=== PATIENT | female | born 1945 | race Caucasian/White ===

== ENCOUNTER 2016-03-19 10:17 | Outpatient (CLI) | payer MEDICARE, OTHER | END 2016-03-19 10:18 | disposition home or self-care (01) | DX: Z12.2 Encounter for screening for malignant neoplasm of respiratory organs (principal); J43.2 Centrilobular emphysema; F17.210 Nicotine dependence, cigarettes, uncomplicated ==

== ENCOUNTER 2016-05-13 15:30 | Outpatient (CLI) | payer MEDICARE, OTHER | END 2016-05-13 15:31 | disposition home or self-care (01) | DX: M79.602 Pain in left arm (principal) ==

== ENCOUNTER 2017-05-19 07:34 | Outpatient (CLI) | payer MEDICARE, OTHER ==
[2017-05-19 10:46] LABS: ALBUMIN 4.1 g/dL (3.2-5.5); BILIRUBIN,DIRECT 0.1 mg/dL (0.1-0.5); BILIRUBIN,TOTAL 0.4 mg/dL (0.2-1.0); TOTAL PROTEIN 7.2 g/dL (6.7-8.2)
== END 2017-05-19 07:35 | disposition home or self-care (01) ==
LOC: LAB.F 07:34
PROVIDERS: ATTEND Physician Assistant
DX: B35.4 Tinea corporis (principal)
CPT/HCPCS: 36415; 80076

== ENCOUNTER 2017-09-02 10:10 | Outpatient (CLI) | payer MEDICARE, OTHER ==
--- NOTE | 2017-09-03 14:02 | Mammography Report ---
Procedure Date: 09/02/2017 Accession Number: [id number] / [id number] Procedure: RODOLFO - Screening Mammo Dig Bilat CPT Code: FULL RESULT: EXAM: Screening Mammo Dig Bilat DATE: 09/02/2017 10:47 AM CLINICAL HISTORY: Routine screening TECHNIQUE: Bilateral CC and MLO views were obtained. COMPARISON: 08/21/2015, 04/07/2014, 07/25/2011, 03/29/2010, and 05/31/2008 FINDINGS: There are scattered fibroglandular densities. There has been no significant interval change. No suspicious masses, skin thickening, clustered microcalcifications, or regions of architectural distortion are identified. IMPRESSION: Negative. RECOMMENDATION: Routine annual screening unless otherwise clinically indicated. BIRADS CATEGORY 1: Negative STANDARD QUALIFYING STATEMENTS: 1. This examination was reviewed with the aid of Computer-Aided Detection (CAD). 2. A negative or benign imaging report should not delay biopsy if clinically suspicious findings are present. Consider surgical consultation if warrented. More than 5% of cancers are not identified by imaging. 3. Dense breasts may obscure an underlying neoplasm.
== END 2017-09-02 10:11 | disposition home or self-care (01) ==
LOC: DI 10:10
PROVIDERS: ATTEND Physician Assistant
DX: Z12.31 Encounter for screening mammogram for malignant neoplasm of breast (principal)
CPT/HCPCS: 77067

== ENCOUNTER 2019-09-08 10:51 | Outpatient (CLI) | payer MEDICARE, OTHER ==
--- NOTE | 2019-09-08 16:46 | DEXA Report ---
Reason: OSTEOPORSIS Procedure Date: 09/08/2019 Accession Number: [id number] / [id number] Procedure: DEX - Dexa Spine and/or Hip CPT Code: Final Report FULL RESULT: PROCEDURE: Dexa Spine and/or Hip INDICATIONS: OSTEOPORSIS TECHNIQUE: Dual energy x-ray absorptiometry (DXA) was performed on a [employer] System. Regions measured are the AP Spine, femoral neck, and if needed forearm. COMPARISON: None. FINDINGS: Lumbar Spine: Bone Mineral Density 0.854 g/cm/cm,T score -2.7 Left Hip: Bone Mineral Density 0.922 g/cm/cm,T score -0.7 Left Femoral Neck: Bone Mineral Density 0.877 g/cm/cm, T score -1.2 (T score greater or equal to -1.0: NORMAL) (T score from -1.1 to -2.4: OSTEOPENIA) (T score less than or equal to -2.5 to: OSTEOPOROSIS) Impression: 1. Osteoporosis of the lumbar spine. 2. Osteopenia of the femoral neck. Patients with diagnosis of osteoporosis or osteopenia should have regular bone mineral density assessment. For those eligible for Medicare, routine testing is allowed once every 2 years. Testing frequency can be increased for patients who have rapidly progressing disease or for those who are receiving medical therapy to restore bone mass. Reviewed by: Megan Molina MD on 09/08/2019 4:45 PM PDT Approved by: Megan Molina MD on 09/08/2019 4:45 PM PDT Station ID: [id number]
== END 2019-09-08 10:52 | disposition home or self-care (01) ==
LOC: DI 10:51
PROVIDERS: ATTEND Registered Nurse
DX: M81.0 Age-related osteoporosis without current pathological fracture (principal); M85.88 Other specified disorders of bone density and structure, other site
CPT/HCPCS: 77080

== ENCOUNTER 2020-10-19 09:34 | Outpatient (CLI) | payer MEDICARE, OTHER ==
[2020-10-19 14:52] LABS: ALBUMIN 4.2 g/dL (3.2-5.5); ALBUMIN/GLOBULIN RATIO 1.4 (1.0-2.2); ALKALINE PHOSPHATASE 63 IU/L (42-121); ALT ALANINE AMINOTRANSFERASE 23 IU/L (10-60); AST ASPARTATE AMINOTRANSFERASE 24 IU/L (10-42); BILIRUBIN,TOTAL 0.6 mg/dL (0.2-1.0); BUN - BLOOD UREA NITROGEN 19 mg/dL (6-20); CALCIUM 9.5 mg/dL (8.5-10.3); CARBON DIOXIDE - CO2 23 mmol/L (21-32); CHLORIDE 105 mmol/L (101-111); CHOL/HDL RATIO 3.3 (<4.4); CHOLESTEROL 179 mg/dL; CREATININE 0.7 mg/dL (0.4-1.0); GFR - MDRD 81 (>89); GLUCOSE 114 mg/dL (70-100); HDL CHOLESTEROL 54 mg/dL; LDL CHOLESTEROL,CALCULATED 98 mg/dL; LDL/HDL RATIO 1.8 (<4.4); MAGNESIUM 1.8 mg/dL (1.7-2.8); POTASSIUM 4.2 mmol/L (3.5-5.0); SODIUM 138 mmol/L (135-145); TOTAL PROTEIN 7.2 g/dL (6.7-8.2); TRIGLYCERIDES 133 mg/dL; VLDL CHOLESTEROL 27 mg/dL
[2020-10-19 15:03] LABS: ALBUMIN 4.3 g/dL (3.2-5.5); BILIRUBIN,DIRECT 0.2 mg/dL (0.1-0.5); BILIRUBIN,TOTAL 0.8 mg/dL (0.2-1.0); TOTAL PROTEIN 7.4 g/dL (6.7-8.2)
[2020-10-19 20:43] LABS: ESTIMATED AVERAGE GLUCOSE 131 mg/dL (70-100); HEMOGLOBIN A1c% 6.2 % (4.27-6.07)
== END 2020-10-19 09:35 | disposition home or self-care (01) ==
LOC: LAB.S 09:34
PROVIDERS: ATTEND Physician Assistant
DX: B35.4 Tinea corporis (principal); R73.9 Hyperglycemia, unspecified; E83.42 Hypomagnesemia; E78.2 Mixed hyperlipidemia
CPT/HCPCS: 36415; 80053; 80061; 80076; 82248; 83036; 83721; 83735

== ENCOUNTER 2021-02-26 09:33 | Outpatient (CLI) | payer MEDICARE, OTHER ==
--- NOTE | 2021-02-26 11:01 | CT Report ---
PROCEDURE: Low Dose Lung Cancer Screen INDICATIONS: NICOTINE DEPENDENCE TECHNIQUE: Noncontrast low-dose images were acquired from the pulmonary apices to the posterior costophrenic ang les. Multiplanar MIP reformats were then acquired. For radiation dose reduction, the following was used: automated exposure control, adjustment of mA and/or kV according to patient size. COMPARISON: 03/19/2016. FINDINGS: Image quality: Excellent. Lungs and pleura: 2 mm pulmonary nodule, left upper lobe, image 71/4. This is unchanged, previously present on image 36/4. 2 mm pulmonary nodule, right lower lobe, image 155/4. This is also unchanged, previously present on image 82/4. Mild centrilobular emphysema. Mediastinum: Heart size is normal. No pericardial effusion. No mediastinal adenopathy by size crit eria. Aneurysmal dilatation of the ascending aorta, measuring 4.6 cm. This is significantly increased since the prior study, in which it measured 3.7 cm. Reference current image 26/3 and previous image 24/3. Aneurysmal dilatation of the descending thoracic aorta measuring 4.2 cm. This is increased from the prior study, and which it measured 3.7 cm. Reference current image 22/3 and previous image 20/3. Esophagus is normal in caliber. No hiatal hernia. Bones and chest wall: No suspicious bony lesions. Mild chronic T7 compression. No axillary or suprac lavicular adenopathy by size criteria. The thyroid is normal in size and there are no incidental fin dings. Abdomen: Visualized upper abdomen solid organs and bowel loops appear normal in the absence of contr ast. 10 cm exophytic right renal cyst. IMPRESSION: 1. LungRads category 1: Negative. No nodules and/or definitely benign nodules. 2. Annual low-dose noncontrast CT of the chest is recommended for lung cancer screening. 3. Clinically significant or potentially clinically significant findings (nonlung cancer): Significan t interval widening of the caliber of the thoracic aorta. Previously, the aorta was normal in size an d the ascending aorta measured 3.7 cm. Currently, the ascending aorta measures 4.6 cm. Comment: Recommend CTA chest to further evaluate the thoracic aorta. CLINICAL RECOMMENDATION STATEMENTS: In patients <35 years with an ITN detected on CT, MRI, or extrathyroidal ultrasound, the Committee re commends further evaluation with dedicated thyroid ultrasound if the nodule is "e1 cm and has no susp icious imaging features, and if the patient has normal life expectancy. In patients "e35 years with an ITN detected on CT, MRI, or extrathyroidal ultrasound, the Committee r ecommends further evaluation with dedicated thyroid ultrasound if the nodule is "e1.5 cm and has no s uspicious imaging features, and if the patient has normal life expectancy. (ACR, 2014) Reviewed by: Wayne Loyola MD on 02/26/2021 11:00 AM PST Approved by: Wayne Loyola MD on 02/26/2021 11:00 AM PST Station ID: [id number]
== END 2021-02-26 09:34 | disposition home or self-care (01) ==
LOC: DI 09:33
PROVIDERS: ATTEND Physician Assistant
DX: Z12.2 Encounter for screening for malignant neoplasm of respiratory organs (principal); F17.210 Nicotine dependence, cigarettes, uncomplicated; I77.810 Thoracic aortic ectasia

== ENCOUNTER 2021-04-11 12:55 | Outpatient (CLI) | payer MEDICARE, OTHER ==
[2021-04-11 20:07] LABS: CREATININE 0.8 mg/dL (0.4-1.0)
--- NOTE | 2021-04-11 20:54 | XRAY Report ---
PROCEDURE: Hip w/Pelvis 2-3V RT INDICATIONS: Right hip pain TECHNIQUE: AP pelvis with lateral view(s) of the right hip(s). COMPARISON: Correlation is made with prior abdomen and pelvis CT, 03/30/2013 FINDINGS: Bones: No fractures or dislocations. Pelvic ring appears intact. No suspicious bony lesions. There is moderate superior joint space narrowing seen involving each hip. There is associated remodel ing change, with subchondral sclerosis and osteophyte formation. Osteitis pubis can be seen, which is considered to be within normal limits for a patient of this age. Note is made of age-appropriate deg enerative change of the lower lumbar spine. Soft tissues: The visualized bowel gas pattern is normal. No suspicious soft tissue calcifications. IMPRESSION: Moderate degenerative changes are seen of both hips. If it would be helpful for clinical management decision making, please consider a dedicated hip MRI f or further evaluation (assuming that there is no contraindication). This should be performed accordi ng to the arthrogram protocol, if there is strong clinical concern for a labral abnormality. Reviewed by: Bishop Blancas MD on 04/11/2021 7:53 PM [place] Approved by: Bishop Blancas MD on 04/11/2021 7:53 PM [facility] Station ID: [id number]
== END 2021-04-11 12:56 | disposition home or self-care (01) ==
LOC: DI.S 12:55
PROVIDERS: ATTEND Physician Assistant
DX: I71.2 Thoracic aortic aneurysm, without rupture (principal); M16.0 Bilateral primary osteoarthritis of hip
CPT/HCPCS: 36415; 82565

== ENCOUNTER 2021-04-16 10:57 | Outpatient (CLI) | payer MEDICARE, OTHER ==
[2021-04-16] MEDS ORDERED: IOVERSOL 320 100 ML VIAL IVP ONE ×2 (11:12→11:44)
--- NOTE | 2021-04-16 13:16 | CT Report ---
PROCEDURE: ANGIO CHEST W/WO INDICATIONS: THORACIC AORTA DILATION CONTRAST: IV CONTRAST: Optiray 320 ml: 80 PO CONTRAST: *NO PO CONTRAST TECHNIQUE: After the administration of intravenous contrast, 2 mm axial images were acquired from the pulmonary apices to the posterior costophrenic angles during the arterial phase. In addition, 1 mm lung kernel and 5 mm soft tissue kernel reconstructions were performed. 3-dimensional coronal oblique maximum int ensity projection (MIP) reformats, 8 mm axial MIP, and 5 mm coronal and sagittal MPR reformats were t hen performed through the thorax. For radiation dose reduction, the following was used: automated exp osure control, adjustment of mA and/or kV according to patient size. COMPARISON: CT low-dose chest dated 02/26/2021 FINDINGS: Image quality: Excellent. Pulmonary arteries: Pulmonary arteries are normal in size, and demonstrate no intraluminal filling d efects to suggest central pulmonary embolism. Lungs and pleura: Lungs are clear. No pleural effusions or pneumothorax. Central and peripheral ai rways are patent. Mediastinum: Heart size is normal, without pericardial effusion. No mediastinal or hilar adenopathy . Aorta: Sinotubular junction 2.1 cm Ascending aorta 4.2 cm Aortic arch 2.9 cm Descending aorta 3.0 cm Bones and chest wall: Mild chronic T7 compression fracture, unchanged. No suspicious bony lesions. Ribs and thoracic spine appear intact throughout. No axillary or supraclavicular adenopathy. The th yroid is normal in size and there are no incidental findings. Abdomen: Large simple right renal cyst measuring 10 cm and smaller left renal cyst measuring 3 cm, ot herwise visualized upper abdominal solid organs appear normal in the early arterial phase of enhancem ent. IMPRESSION: Aneurysmal dilatation of the ascending aorta measuring up to 4.4 cm. Recommend continued annual monitoring. CLINICAL RECOMMENDATION STATEMENTS: In patients <35 years with an ITN detected on CT, MRI, or extrathyroidal ultrasound, the Committee re commends further evaluation with dedicated thyroid ultrasound if the nodule is "e1 cm and has no susp icious imaging features, and if the patient has normal life expectancy. In patients "e35 years with an ITN detected on CT, MRI, or extrathyroidal ultrasound, the Committee r ecommends further evaluation with dedicated thyroid ultrasound if the nodule is "e1.5 cm and has no s uspicious imaging features, and if the patient has normal life expectancy. (ACR, 2014) Reviewed by: Fred Ramirez on 04/16/2021 1:15 PM PST Approved by: Fred Ramirez on 04/16/2021 1:15 PM PST Station ID: [id number]
== END 2021-04-16 10:58 | disposition home or self-care (01) ==
LOC: DI 10:57
PROVIDERS: ATTEND Physician Assistant
DX: I71.2 Thoracic aortic aneurysm, without rupture (principal)
CPT/HCPCS: 71275; Q9967

== ENCOUNTER 2022-05-20 11:10 | Outpatient (CLI) | payer MEDICARE, OTHER ==
[2022-05-20] MEDS ORDERED: iohexoL-300 100 ML VIAL ONE (11:26)
[2022-05-20 11:43] LABS: CREATININE 0.8 mg/dL (0.4-1.0)
[2022-05-20] MEDS ORDERED: iohexoL-300 100 ML VIAL IVP ONE (14:07)
--- NOTE | 2022-05-20 16:30 | CT Report ---
PROCEDURE: ANGIO CHEST W/WO INDICATIONS: ANEURYSM OF THORACIC AORTA CONTRAST: 80ml Omnipaque 300 TECHNIQUE: After the administration of intravenous contrast, 2 mm axial images were acquired from the pulmonary apices to the posterior costophrenic angles during the arterial phase. In addition, 1 mm lung kernel and 5 mm soft tissue kernel reconstructions were performed. 3-dimensional coronal oblique maximum int ensity projection (MIP) reformats, 8 mm axial MIP, and 5 mm coronal and sagittal MPR reformats were t hen performed through the thorax. For radiation dose reduction, the following was used: automated exp osure control, adjustment of mA and/or kV according to patient size. COMPARISON: April 16, 2021 CT examination FINDINGS: Image quality: Excellent. Pulmonary arteries: Pulmonary arteries are normal in size, and demonstrate no intraluminal filling d efects to suggest central pulmonary embolism. Lungs and pleura: Lungs are clear. No pleural effusions or pneumothorax. Central and peripheral ai rways are patent. Mediastinum: Heart size is normal, without pericardial effusion. No mediastinal or hilar adenopathy . Aneurysmal dilatation of the descending thoracic aorta is present, as before, demonstrate a maximal short axis diameter of roughly 49 mm. No dissection. No significant stenosis.. Esophagus is normal in caliber, without hiatal hernia. Bones and chest wall: No suspicious bony lesions. Ribs and thoracic spine appear intact throughout. No axillary or supraclavicular adenopathy. The thyroid is normal in size and there are no incident al findings. Abdomen: Visualized portions of the upper abdomen demonstrate right greater than left superior pole renal cysts, as before. IMPRESSION: 1. Increased ascending thoracic aortic aneurysm. 2. No acute process. Reviewed by: Kyle Posadas MD on 05/20/2022 4:29 PM PST Approved by: Kyle Posadas MD on 05/20/2022 4:29 PM PST Station ID: [id number]
== END 2022-05-20 11:11 | disposition home or self-care (01) ==
LOC: LAB 11:10
PROVIDERS: ATTEND Physician Assistant
DX: I71.21 Aneurysm of the ascending aorta, without rupture (principal); M81.0 Age-related osteoporosis without current pathological fracture; F17.210 Nicotine dependence, cigarettes, uncomplicated
CPT/HCPCS: 36415; 71275; 82565; Q9967

== ENCOUNTER 2022-06-03 14:21 | Outpatient (CLI) | payer MEDICARE, OTHER ==
--- NOTE | 2022-06-03 15:36 | DEXA Report ---
PROCEDURE: Dexa Spine and/or Hip INDICATIONS: OSTEOPOROSIS TECHNIQUE: Dual energy x-ray absorptiometry (DXA) was performed on a [employer] System. Regions measur ed are the AP Spine, femoral neck, and if needed forearm. COMPARISON: None. FINDINGS: Lumbar Spine: Bone Mineral Density 0.9 g/cm/cm,T score -2.6, osteoporosis Left Femoral Neck: Bone Mineral Density 0.9 g/cm/cm, T score -0.7, normal bone density Impression: 1. Osteoporosis of the lumbar spine. 2. Normal left femoral neck bone density. Patients with diagnosis of osteoporosis or osteopenia should have regular bone mineral density assess ment. For those eligible for Medicare, routine testing is allowed once every 2 years. Testing frequ ency can be increased for patients who have rapidly progressing disease or for those who are receivin g medical therapy to restore bone mass. Reviewed by: Kyle Posadas MD on 06/03/2022 3:35 PM PDT Approved by: Kyle Posadas MD on 06/03/2022 3:35 PM PDT Station ID: [id number]
== END 2022-06-03 14:22 | disposition home or self-care (01) ==
LOC: DI 14:21
PROVIDERS: ATTEND Physician Assistant
DX: M81.0 Age-related osteoporosis without current pathological fracture (principal)

== ENCOUNTER 2023-09-04 10:20 | Outpatient (CLI) | payer MEDICARE, OTHER ==
[2023-09-04 15:03] LABS: BASOPHILS # (AUTO) 0.1 10^3/uL (0.0-0.1); BASOPHILS % (AUTO) 0.7 %; EOSINOPHILS # (AUTO) 0.1 10^3/uL (0.0-0.7); EOSINOPHILS % (AUTO) 1.3 %; HCT - HEMATOCRIT 44.3 % (37.0-47.0); HGB - HEMOGLOBIN 14.5 g/dL (12.0-16.0); LYMPHOCYTES # (AUTO) 3.2 10^3/uL (1.5-3.5); LYMPHOCYTES % (AUTO) 36.8 %; MEAN CORPUSCULAR HGB CONC 32.7 g/dL (32.0-36.0); MEAN CORPUSCULAR VOLUME 94.7 fL (81.0-99.0); MEAN PLATELET VOLUME 10.2 fL (7.9-10.8); MONOCYTES # (AUTO) 0.9 10^3/uL (0.0-1.0); MONOCYTES % (AUTO) 10.3 %; NEUTROPHILS # (AUTO) 4.5 10^3/uL (1.5-6.6); NEUTROPHILS % (AUTO) 50.8 %; PLT - PLATELET COUNT 278 10^3/uL (130-450); RED BLOOD COUNT 4.68 10^6/uL (4.20-5.40); RED CELL DISTRIBUTION WIDTH 14.4 % (12.0-15.0); WHITE BLOOD COUNT 8.8 x10^3/uL (4.8-10.8)
[2023-09-04 15:49] LABS: ALBUMIN 4.3 g/dL (3.2-5.5); ALBUMIN/GLOBULIN RATIO 1.4 (1.0-2.2); BILIRUBIN,TOTAL 0.5 mg/dL (0.2-1.0); CALCIUM 9.9 mg/dL (8.5-10.3); CREATININE 0.8 mg/dL (0.6-1.3); POTASSIUM 4.1 mmol/L (3.5-4.5); TOTAL PROTEIN 7.3 g/dL (6.4-8.9)
[2023-09-04 16:06] LABS: THYROID STIMULATING HORMONE 2.26 uIU/mL (0.34-5.60)
== END 2023-09-04 10:21 | disposition home or self-care (01) ==
LOC: LAB.S 10:20
PROVIDERS: ATTEND Internal Medicine
DX: R53.83 Other fatigue (principal); M81.0 Age-related osteoporosis without current pathological fracture
CPT/HCPCS: 36415; 80053; 82306; 82330; 84443; 85025